=== PATIENT | male | born 1965 | race Caucasian/White ===

== ENCOUNTER 2017-04-05 22:12 | Emergency (ER) | payer SELFPAY ==
[2017-04-05 22:22] VITALS: BP 123/99; PULSE 92; RESP 18; TEMP 98.5
--- NOTE | 2017-04-05 22:45 | ED ---
General Adult HPI - General Chief complaint: Psychiatric Symptoms Stated complaint: petition Time Seen by Provider: 04/05/17 22:23 Source: patient, police, RN notes reviewed Mode of arrival: ambulatory Limitations: no limitations - History of Present Illness Initial comments: 51-year-old male presents for evaluation of depression and suicidal ideation. Patient does admit to drinking this evening. He was found by the local [employer]. Coronary history patient was at his father's grave sight stating that he will be joining him soon. Patient does state he has a plan but is unwilling to share with me exactly what this plan is. He denies any substance ingestion other than alcohol. He denies any attempt at suicide this evening. He has history of depression and hypertension. He has no physical complaints. - Related Data Home Medications Medication Instructions Recorded Confirmed Acetaminophen [Tylenol Extra 1,000 mg PO Q6H PRN 04/05/17 04/05/17 Strength] Ascorbic Acid [Vitamin C] 500 mg PO DAILY 04/05/17 04/05/17 Aspirin [Adult Low Dose Aspirin EC] 81 mg PO DAILY 04/05/17 04/05/17 Cholecalciferol [Vitamin D3] 1,000 unit PO DAILY 04/05/17 04/05/17 Ibuprofen [Motrin Ib] 400 - 800 mg PO Q6H PRN 04/05/17 04/05/17 Multivitamin [Men's Multi-Vitamin] 1 tab PO DAILY 04/05/17 04/05/17 Allergies Allergy/AdvReac Type Severity Reaction Status Date / Time No Known Allergies Allergy Verified 04/05/17 22:21 Review of Systems ROS Statement: Those systems with pertinent positive or pertinent negative responses have been documented in the HPI. ROS Other: All systems not noted in ROS Statement are negative. Past Medical History Past Medical History: No Reported History History of Any Multi-Drug Resistant Organisms: None Reported Past Surgical History: No Surgical Hx Reported Past Psychological History: Anxiety, Depression Smoking Status: Current every day smoker Past Alcohol Use History: None Reported, Daily General Exam Limitations: no limitations General appearance: alert, in no apparent distress, appears intoxicated Head exam: Present: atraumatic, normocephalic Eye exam: Present: normal appearance, PERRL, EOMI ENT exam: Present: normal exam Neck exam: Present: normal inspection. Absent: tenderness, meningismus Respiratory exam: Present: normal lung sounds bilaterally. Absent: respiratory distress, wheezes Cardiovascular Exam: Present: regular rate, normal rhythm GI/Abdominal exam: Present: soft. Absent: distended, tenderness Extremities exam: Present: normal inspection, full ROM. Absent: tenderness Back exam: Present: normal inspection Neurological exam: Present: alert, oriented X3, CN II-XII intact. Absent: motor sensory deficit Psychiatric exam: Present: depressed, suicidal ideation Skin exam: Present: warm, dry, intact. Absent: cyanosis, diaphoretic Course Vital Signs 04/05/17 22:14 Temperature 98.5 F Pulse Rate 92 Respiratory 18 Rate Blood Pressure 123/99 O2 Sat by Pulse 98 Oximetry Medical Decision Making - Medical Decision Making 51-year-old male presenting with alcohol intoxication and suicidal ideation. Patient is medically cleared, awaiting sobriety, after patient is sober he is evaluated by EPS. He is no longer suicidal. He is given outpatient follow-up. I did reevaluate the patient after EPS, he denies any suicidal thoughts. He is comfortable with outpatient follow-up. He does have good support system at home. - Lab Data Lab Results 04/06/17 Range/Units 02:00 Urine Opiates Screen Not Detected (NotDetected) Ur Oxycodone Screen Not Detected (NotDetected) Urine Methadone Screen Not Detected (NotDetected) Ur Propoxyphene Screen Not Detected (NotDetected) Ur Barbiturates Screen Not Detected (NotDetected) U Tricyclic Antidepress Not Detected (NotDetected) Ur Phencyclidine Scrn Not Detected (NotDetected) Ur Amphetamines Screen Not Detected (NotDetected) U Methamphetamines Scrn Not Detected (NotDetected) U Benzodiazepines Scrn Not Detected (NotDetected) Urine Cocaine Screen Not Detected (NotDetected) U Marijuana (THC) Screen Not Detected (NotDetected) Disposition Clinical Impression: Depression Disposition: HOME SELF-CARE Condition: Good Instructions: Depression (ED) Additional Instructions: Patient given outpatient referral for counseling Referrals: Nonstaff,Physician [Primary Care Provider] - 1-2 days Time of Disposition: 02:53
[2017-04-06 02:32] LABS: Amphetamine Screen,Urine Not Detected (NotDetected); Barbiturate Screen,Urine Not Detected (NotDetected); Benzodiazepines Screen,Urine Not Detected (NotDetected); Cocaine Screen,Urine Not Detected (NotDetected); Methadone Screen, Urine Not Detected (NotDetected); Opiate Screen,Urine Not Detected (NotDetected); Oxycodone Screen, Urine Not Detected (NotDetected); Phencyclidine Screen,Urine Not Detected (NotDetected); Tricyclic Antidepressant,Urine Not Detected (NotDetected); Urn Cannabinoid Scrn Not Detected (NotDetected)
== END 2017-04-06 03:23 | disposition home or self-care (01) ==
LOC: EC 22:12
DX: F32.9 Major depressive disorder, single episode, unspecified (principal); R45.851 Suicidal ideations; F17.200 Nicotine dependence, unspecified, uncomplicated; Z79.82 Long term (current) use of aspirin; Z79.899 Other long term (current) drug therapy
CPT/HCPCS: 80306; 82075; 99284